=== PATIENT | male | born 1970 | race Asian ===

== ENCOUNTER 2017-08-03 20:02 | Emergency (ER) | payer BC ==
[~2017-08-03] VITALS: Ht 162.6 cm; Wt 69.8 kg
[2017-08-03 20:15] VITALS: Ht 162.6 cm; Wt 69.8 kg
[2017-08-03 22:35] VITALS: BP 122/79
== END 2017-08-03 22:35 | disposition home or self-care (01) ==
LOC: ED 20:02
DX: S01.81XA Laceration without foreign body of other part of head, initial encounter (principal); W22.8XXA Striking against or struck by other objects, initial encounter; Y93.67 Activity, basketball; Y92.89 Other specified places as the place of occurrence of the external cause; Y99.8 Other external cause status
CPT/HCPCS: J2001